=== PATIENT | male | born 1960 | race Caucasian/White ===

== ENCOUNTER 2017-06-06 08:32 | Day surgery (SDC) | payer BC ==
[~2017-06-06] VITALS: Ht 182.9 cm; Wt 96.2 kg
--- NOTE | ~2017-06-06 | OP ---
Record Of Operation [facility] [address] [place]. [address] NAME: ERIC VELÁZQUEZ : 64 STATUS : REG [facility] PAT#: [id number] AGE: 56 ADM/REG DATE : 06/06/17 MR#: [id number] REPORT SERV DATE: 06/06/17 DICTATED BY: MALA HOFFMAN DATE: 06/06/17 REPORT STATUS : Draft TRANSCRIBED BY: MODSunday DATE: 06/06/17 DATE OF PROCEDURE: 06/06/2017 PREOPERATIVE DIAGNOSIS: Melanoma in situ, right upper neck. POSTOPERATIVE DIAGNOSIS: Melanoma in situ, right upper neck. PROCEDURE PERFORMED: 1. Wide local excision, right upper neck malignant melanoma in situ. 2. Complex layered closure of 7.5 x 3.5 cm defect. [employer] DEVELOPER: None. ANESTHESIA: General. COMPLICATIONS: None. CONDITION: Stable to recovery. INDICATIONS: A 56-year-old male with melanoma in situ of the right upper neck. Risks, benefits, and alternatives to surgical excision were explained and he agreed. PROCEDURE IN DETAIL: The patient was identified in preoperative holding and taken back to the operating room, and placed supine on the operating room table. General anesthesia was established. His right neck biopsy site was outlined with a surgical marking pen, an area of approximately 2 cm x 1 cm. A 0.5 to 1 cm margin was outlined, I went around this with a surgical marking pen and infiltrated subcutaneously with 1% lidocaine with 1:100,000 epinephrine. Time-out was called and the patient and procedure were confirmed. Using 2.5X loupe magnification and headlight illumination, the operation commenced. After the patient was prepped and draped in the standard fashion, the 15 blade was used to make the incision down to the platysma. Bovie cautery was then used to excise the lesion in its entirety deep to the platysma and it was stitched at 12 o'clock, and prepared for permanent pathology analysis. The defect was 3.5 x 3.5 cm. We extended Burow triangles in the direction of the relaxed skin tension lines, which required excision of Burow triangles at 10 and 4 o'clock. The wound was then 7.5 cm x 3.5 cm and it was closed in layers using 3-0 Vicryl and 4-0 interrupted Prolene followed by Steri-Strips. The patient was awakened and taken to recovery in stable condition. PH/MODL Mala Hoffman M.D. / [id number] Record Of [address] [address] NAME: ERIC VELÁZQUEZ : 64 STATUS : REG [facility] PAT#: [id number] AGE: 56 ADM/REG DATE : 06/06/17 MR#: [id number] REPORT SERV DATE: 06/06/17 DICTATED BY: MALA HOFFMAN DATE: 06/06/17 REPORT STATUS : Draft TRANSCRIBED BY: MODL DATE: 06/06/17 CC: Ciaran Rosenberg M.D.
[~2017-06-06 08:32] MED LIST: ASA5GR PO
[2017-06-06 09:03] LABS: HEMATOCRIT 45.7 % (40.0-51.0)
[2017-06-06 09:14] LABS: BUN (BLOOD UREA NITROGEN) 16 MG/DL (6-23); CALCIUM, SERUM 9.1 MG/DL (8.5-10.4); CHLORIDE, SERUM 106 MMOL/L (96-112); CO2 (CARBON DIOXIDE) 29 MMOL/L (24-34); CREATININE 0.95 MG/DL (0.70-1.30); GFR AFRICAN AMERICAN 105 ML/MIN (>=60); GFR NON AFRICAN AMERICAN 90 ML/MIN (>=60); GLUCOSE, SERUM 109 MG/DL (60-99); POTASSIUM, SERUM 4.8 MMOL/L (3.5-5.3); SODIUM, SERUM 140 MMOL/L (135-148)
== END 2017-06-06 14:58 | disposition home or self-care (01) ==
LOC: SDC 08:32
PROVIDERS: Specialist
PROC: 0JB40ZZ Excision of Right Neck Subcutaneous Tissue and Fascia, Open Approach (ICD-10-PCS; principal; 2017-06-06 09:45)
DX: D03.4 Melanoma in situ of scalp and neck (principal); G43.909 Migraine, unspecified, not intractable, without status migrainosus; Z91.040 Latex allergy status; Z87.442 Personal history of urinary calculi
CPT/HCPCS: 80048; 85014; 85018; 88305; 93005; A9270-GY; J0360; J0690; J2250; J2405; J3010